=== PATIENT | female | born 1995 ===

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

== ENCOUNTER 2017-03-30 19:43 | Emergency (ER) | payer BC, OTHER ==
[2017-03-30 20:07] VITALS: PULSE 93; RESP 18; TEMP 98; O2SAT 98
[2017-03-30] MEDS ORDERED: Albuterol 0.083% Inhal Sol (2.5 mg/3 mL) UD INH STA (20:32)
--- NOTE | 2017-03-30 20:33 | C.PDOC ---
History Of Present Illness 21 yo female w/PMHx of asthma come in for evaluation of cold sx for past week associated with chills, weakness, nasal congestion, sore throat and dry cough. Pt reports, with time cough worsen, developed some chest tightness with cough. Otherwise, pt denies high fever, headache, dizziness, drooling, dysphagia, dyspnea, SOB, palpitation, abd. pain, N/V?D, back pain, UTI sx. Ambulate to ED for evaluation, not in any apparent distress. Time Seen by Provider: 03/30/17 20:06 Chief Complaint (Nursing): ENT Problem History Per: Patient Onset/Duration Of Symptoms: Gradual Past Medical History Reviewed: Historical Data, Nursing Documentation, Vital Signs Vital Signs: Last Vital Signs Temp 98 F 03/30/17 20:02 Pulse 93 H 03/30/17 20:02 Resp 18 03/30/17 20:02 BP 140/68 03/30/17 20:36 Pulse Ox 98 03/30/17 21:18 - Medical History PMH: Asthma, Fractures (rt. arm & rt. foot) Denies: Diabetes, Hepatitis, HIV, HTN, Seizures, Sexually Transmitted Disease Surgical History: No Surg Hx Family History: States: No Known Family Hx - Social History Hx Tobacco Use: No Hx Alcohol Use: No Hx Substance Use: No - Immunization History Hx Tetanus Toxoid Vaccination: Yes Hx Influenza Vaccination: No Hx Pneumococcal Vaccination: Yes Review Of Systems Except As Marked, All Systems Reviewed And Found Negative. Constitutional: Positive for: Chills, Malaise. Negative for: Fever ENT: Positive for: Nose Discharge, Nose Congestion, Throat Pain. Negative for: Ear Discharge, Throat Swelling Respiratory: Positive for: Cough, Wheezing. Negative for: Shortness of Breath Gastrointestinal: Negative for: Nausea, Vomiting, Abdominal Pain, Diarrhea Genitourinary: Negative for: Dysuria Musculoskeletal: Negative for: Neck Pain Skin: Negative for: Rash Neurological: Negative for: Weakness, Numbness, Altered Mental Status, Dizziness Physical Exam - Physical Exam Appears: Well, Non-toxic, No Acute Distress Skin: Normal Color, Warm, Dry, No Rash Head: Normacephalic Eye(s): bilateral: PERRL Ear(s): Bilateral: Normal Nose: No Flaring, Discharge (B/L scant, clear) Oral Mucosa: Moist, No Drooling Tongue: Normal Appearing Lips: Normal Appearing Throat: Erythema (mild B/L), No Exudate, No Drooling Neck: Trachea Midline, Supple Cardiovascular: Rhythm Regular Respiratory: No Decreased Breath Sounds, No Accessory Muscle Use, No Rales, No Stridor, Wheezing (scattered rIght base) Gastrointestinal/Abdominal: Soft, No Tenderness, No Distention, No Guarding Back: No CVA Tenderness Extremity: Normal ROM, No Deformity, No Swelling Neurological/Psych: Oriented x3, Normal Speech ED Course And Treatment O2 Sat by Pulse Oximetry: 98 Pulse Ox Interpretation: Normal Progress Note: On re-evaluation, pt is afebrile, hemodynamicaly stable. Non- toxic. Tolerate Po well in ED. PulseOx 98% RA. Neck: SUpple, (-) meningeal sign. ENT: no acute findings. Lungs: CTA B/L, BS equal B/L. Abd: benign. Neurologicaly intact. Pt has clinical findings c/w bronchitis, asthma exacerbation. ref. to F/u with Ped in 2-3 days for re-eval. return to ED if any worsening or new changes. Disposition - Disposition Referrals: Non [facility] Provider, [Primary Care Provider] - Disposition Time: 20:33 Condition: STABLE Additional Instructions: ENCOURAGE FLUIDS BEDREST FOR 1-2 DAYS TAKE MEDICATION PRESCRIBED FOLLOW UP WITH PMD IN 2-3 DAYS FOR RE-EVALUATION. RETURN TO ED IF ANY WORSENING OR NEW CHANGES. Prescriptions: Albuterol HFA [Ventolin HFA 90 mcg/actuation (8 g)] 1 puff IH Q6 #1 inhaler Azithromycin 1 tab PO DAILY #4 tab Benzonatate [Tessalon Perle] 100 mg PO TID #14 capsule Prednisone [Deltasone] 20 mg PO DAILY #3 tablet Instructions: Asthma (ED), Acute Bronchitis (ED) Forms: [employer] (Nepalese) - Clinical Impression Clinical Impression: Asthma, Bronchitis
[2017-03-30 20:36] VITALS: BP 140/68
[2017-03-30] MEDS ORDERED: Albuterol-Ipratrop 3 mg / 0.5 (3 ml) UD ONE (20:47)
[2017-03-30] MEDS ORDERED: Albuterol 0.083% Inhal Sol (2.5 mg/3 mL) UD ONE (20:49)
== END 2017-03-30 21:27 | disposition home or self-care (01) ==
LOC: C.ER 19:43 → SUPCPDRO 19:43 → C.ER 21:27
DX: J45.909 Unspecified asthma, uncomplicated (principal)

== ENCOUNTER 2017-07-23 20:05 | Emergency (ER) | payer OTHER ==
[2017-07-23 20:23] VITALS: BP 114/70; PULSE 78; RESP 20; TEMP 97.2; O2SAT 98
--- NOTE | 2017-07-23 20:56 | C.PDOC ---
History Of Present Illness 21 y/o female c/o 4 day hx of intermittent migratory headache; pt reports she gets a sharp pain that lasts a min to few minutes, then resolves, only to return later. pt has had similar headache in past that lasted 2 days. denies any associated nausea, vomiting, fever or chills, photophobia, trauma to head, neck stiffness. pt took 2 tab otc advil bid with temporary relief. Time Seen by Provider: 07/23/17 20:33 Chief Complaint (Nursing): Headache History Per: Patient History/Exam Limitations: no limitations Onset/Duration Of Symptoms: Days (4) Severity: Moderate Quality: Sharp Preceeding Symptoms: None Associated Symptoms: denies: Photophobia, Nausea, Vomiting Past Medical History Vital Signs: Last Vital Signs Temp 97.2 F L 07/23/17 20:20 Pulse 78 07/23/17 20:20 Resp 20 07/23/17 20:20 BP 114/70 07/23/17 20:20 Pulse Ox 98 07/23/17 23:03 - Medical History PMH: Asthma, Fractures (rt. arm & rt. foot) Denies: Diabetes, Hepatitis, HIV, HTN, Seizures, Sexually Transmitted Disease Family History: States: Unknown Family Hx - Social History Hx Tobacco Use: No Hx Alcohol Use: No Hx Substance Use: No - Immunization History Hx Tetanus Toxoid Vaccination: No Hx Influenza Vaccination: No Hx Pneumococcal Vaccination: No Review Of Systems Constitutional: Negative for: Fever, Chills Cardiovascular: Negative for: Chest Pain Respiratory: Negative for: Cough Gastrointestinal: Negative for: Nausea, Vomiting, Abdominal Pain Musculoskeletal: Negative for: Neck Pain Skin: Negative for: Rash Physical Exam - Physical Exam Appears: Non-toxic, No Acute Distress Skin: Warm, Dry Head: Atraumatic, Normacephalic Eye(s): bilateral: Normal Inspection, PERRL, EOMI Ear(s): Bilateral: Normal Nose: No Discharge Oral Mucosa: Moist Throat: No Erythema, No Exudate Neck: Supple, Other (no meningeal signs) Chest: No Deformity, No Tenderness Cardiovascular: Rhythm Regular, No Murmur Respiratory: No Decreased Breath Sounds, No Wheezing Gastrointestinal/Abdominal: Soft, No Tenderness Neurological/Psych: Oriented x3, Normal Speech, Normal Cognition, Normal Cranial Nerves, Normal Motor, Normal Sensation ED Course And Treatment O2 Sat by Pulse Oximetry: 98 - CT Scan/US CT Head Other Rad Studies (CT/US): Read By Radiologist, Radiology Report Reviewed CT/US Interpretation: FINDINGS: Brain: Unremarkable. No hemorrhage. No significant white matter disease. No edema. Normal. salgureo white matter interfaces are present. Ventricles: Unremarkable. No ventriculomegaly. Bones/ joints: Unremarkable. No acute fracture. Soft tissues: Unremarkable. Sinuses: Unremarkable as visualized. No acute sinusitis. Mastoid air cells: Unremarkable as visualized. No mastoid effusion. IMPRESSION: Normal head/ brain CT. Thank you for allowing us to participate in the care of your patient. Dictated and Authenticated by: Gilmar Albert MD. 07/23/2017 10:25 PM Eastern Time ([place] & [place]) Medical Decision Making Medical Decision Making: pt with transient sharp ortiz, migratory for 4 days, neg head ct, pt feeling better after tylenol. advised to keep headache diary and to f/u with pmd and neurologist. . Disposition Counseled Patient/Family Regarding: Studies Performed, Diagnosis, Need For Followup - Disposition Referrals: Oralia Noe MD [Staff Provider] - Disposition: HOME/ ROUTINE Disposition Time: 23:00 Condition: IMPROVED Additional Instructions: Please keep headache diary- location of pain, timing of pain, associated factors. Follow up with your pmd and neurologist. Tylenol or Motrin for headache if needed. Prescriptions: Ibuprofen [Motrin] 600 mg PO TID #30 tab Instructions: Headache, Adult (DC) Forms: [facility] (Sinhala), General Discharge Instructions - Clinical Impression Clinical Impression: Headache
--- NOTE | 2017-07-24 08:51 | CT ---
PROCEDURE: CT HEAD WITHOUT CONTRAST. HISTORY: headache COMPARISON: None available. TECHNIQUE: Axial computed tomography images were obtained through the head/brain without intravenous contrast. Radiation dose: Total exam DLP = 669 mGy-cm. This CT exam was performed using one or more of the following dose reduction techniques: Automated exposure control, adjustment of the mA and/or kV according to patient size, and/or use of iterative reconstruction technique. FINDINGS: HEMORRHAGE: No intracranial hemorrhage. BRAIN: No mass effect or edema. No atrophy or chronic microvascular ischemic changes. VENTRICLES: Unremarkable. No hydrocephalus. CALVARIUM: Unremarkable. PARANASAL SINUSES: Unremarkable as visualized. No significant inflammatory changes. MASTOID AIR CELLS: Unremarkable as visualized. No inflammatory changes. OTHER FINDINGS: None. IMPRESSION: No acute intracranial abnormality. If focal neurologic deficit persists, consider MRI. These findings were preliminarily reported at 10:25 p.m. on 07/23/[address] Gilmar Albert from [facility].
== END 2017-07-23 23:12 | disposition home or self-care (01) ==
LOC: C.ER 20:05
DX: R51 Headache (principal)